=== PATIENT | male | born 1955 | race Caucasian/White ===

== ENCOUNTER → 2017-05-04 | Outpatient (CLI) | payer BC ==
[~2017-05-04] MED LIST: AMLO2.5T PO; BACTRIM DS 8001 TAB PO; NICOTINE PATCH;21 MG TD; NORCO 325 MG-101 TAB PO; OXYBUTYNIN5 MG PO
--- NOTE | 2017-05-04 16:58 | RADIOLOGY REPORT PS360 ---
FOOT-LT-3 VIEWS HISTORY: LEFT FOOT PAIN ORDERING PHYSICIAN: Sandy NEWTON PATIENT AGE: 61 years COMPARISON: None FINDINGS: No fracture or dislocation. No lytic or blastic change. There is normal mineralization.. There are minimal osteoarthritic changes of the first metatarsophalangeal joint. No fracture or dislocation. No lytic or blastic change. Normal alignment. IMPRESSION: Minimal osteoarthritic change of the first metatarsophalangeal joint otherwise negative left foot
== END ==
LOC: RAD 16:35
DX: M79.672 Pain in left foot (principal)